=== PATIENT | male | born 1940 | race Caucasian/White ===

== ENCOUNTER 2016-09-15 16:14 | Inpatient (IN) ==
[2016-09-15] MEDS ORDERED: NS 4,000 ML ONE (16:17)
[2016-09-15] MEDS ORDERED: ZOFRAN IV ONE ×2 (16:24→19:14)
[2016-09-15] MEDS ORDERED: NS 1,000 ML IV ONE ×2 (16:24→16:56)
[2016-09-15 16:41] LABS: MANUAL DIFF NEEDED? NO
[2016-09-15 16:44] LABS: BASO% 0.4 % (0.0-0.8); EOS# 0.13 X1000 (0.0-0.7); EOS% 1.3 % (0.0-10.0); HEMATOCRIT 43.3 % (42.0-52.0); HEMOGLOBIN 14.3 g/dL (14.0-18.0); IMM GRAN# 0.14 X1000 (0.0-0.04); IMM GRAN% 1.4 % (0.0-0.5); LYMPH# 2.75 X1000 (1.2-3.4); LYMPH% 27.6 % (20.5-51.1); MCH 29.7 PG (27-31); MCV 89.8 FL (81-99); MONO# 0.58 X1000 (0.11-0.59); MONO% 5.8 % (1.7-9.3); MPV 10.3 FL (7.4-10.4); NEUT% 63.5 % (42.2-75.2); PLT 181 X1000 (130-400); RBC 4.82 XMIL (4.7-6.1)
[2016-09-15 16:52] LABS: INR 0.97; PROTIME 10.2 Seconds (9.2-11.7); PTT 22.2 Seconds (22.0-36.0)
[2016-09-15 17:03] LABS: ALBUMIN 3.8 g/dL (3.5-5.0); CALCIUM 8.6 mg/dL (8.8-10.2); POTASSIUM 4.3 mmol/L (3.5-5.1); TOTAL BILIRUBIN 0.34 mg/dL (0.20-1.00); TOTAL PROTEIN 6.4 g/dL (6.3-8.3)
--- NOTE | 2016-09-15 17:03 | Diag Imaging Result Document ---
PROCEDURE NAME: CHEST-PORTABLE - 09/15/2016 SINGLE FRONTAL RADIOGRAPH OF THE CHEST: COMPARISON: 07/22/2016. FINDINGS: Left chest port is in stable position. The lungs are grossly clear. There is no definite pleural fluid collection. Cardiac silhouette and central vasculature are grossly unremarkable. IMPRESSION: Stable chest with no definite acute pathology.
--- NOTE | 2016-09-15 17:05 | Diag Imaging Result Document ---
PROCEDURE NAME: PELVIS - 09/15/2016 SINGLE FRONTAL RADIOGRAPH OF THE PELVIS: COMPARISON: None available. FINDINGS: There are cortical defects involving the superior pubic ramus on the right, the superior pubic ramus on the left, and the inferior pubic ramus on the left suggesting nondisplaced fractures. No discrete hip fracture is identified. The joint spaces are preserved. There is degenerative arthropathy involving the lower lumbar spine. IMPRESSION: Evidence of nondisplaced fractures at least involving the superior pubic rami bilaterally in the inferior pubic ramus on the left.
--- NOTE | 2016-09-15 17:09 | Diag Imaging Result Document ---
PROCEDURE NAME: KUB ABDOMEN - 09/15/2016 SINGLE FRONTAL RADIOGRAPH OF THE ABDOMEN: COMPARISON: None available. FINDINGS: There are unremarkable bowel gas and stool patterns. There is no obstructive pattern. There is no evidence of large volume free abdominal gas. There are nondisplaced fractures involving pubic rami bilaterally and the left inferior ramus. See pelvic radiograph report for full details. IMPRESSION: Pelvic fractures as described. No definite acute abdominal pathology by plain radiograph. [facility]
[2016-09-15] MEDS ORDERED: DILAUDID IV ONE ×2 (17:19→19:14)
--- NOTE | 2016-09-15 17:25 | Diag Imaging Result Document ---
PROCEDURE NAME: ANGIOGRAM/AORTA W/RUNOFF - 09/15/2016 CTA ABDOMEN AND PELVIS WITH LOWER EXTREMITY RUNOFFS: COMPARISON: Conventional CT abdomen and pelvis dated 07/22/2016. FINDINGS: There is fairly extensive atherosclerotic calcification throughout the abdominal aorta as well as the iliac arteries. 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 The aorta remains patent. There is multifocal moderate narrowing of the common iliac arteries and internal iliac arteries. They remain patent, however. There is mild focal atherosclerotic calcification involving the proximal and distal external iliac artery on the left. It remains patent, however. The right external iliac artery is widely patent throughout its course. There is atherosclerotic calcification at the origins of the celiac trunk and SMA causing mild stenosis. They remain patent. The LÓPEZ appears to be occluded at its origin with reconstitution of blood flow via collateralization. There is atherosclerotic disease at the origins of both renal arteries. There is [id number] stenosis here. They remain patent, however. There is no evidence of acute vascular injury involving the abdomen or pelvis. There are nondisplaced fractures involving the superior pubic rami bilaterally extending to the anterior aspect of the acetabulum on the right as well as the inferior pubic ramus on the left that were also seen on a previous recent radiograph. There are very subtle nondisplaced fractures at the inferior pubic ramus on the right as well as the left sacral ala that could not be identified by plain radiograph. The femurs are intact. There is a perineal hematoma. There is a small amount of blood adjacent to the bladder base , more on the left. This does not appear to be intraperitoneal blood. Otherwise, the abdomen and pelvis are essentially stable as compared to the previous study. There is patchy atherosclerotic calcification involving both common femoral arteries distally with mild stenosis. There is also calcification involving the superficial femoral arteries with bilateral moderate focal stenosis at the distal superficial femoral arteries. There is relatively mild atherosclerotic calcification involving the popliteal arteries. On the right, the anterior and posterior tibial arteries remain patent throughout their courses and provide runoff to the foot. The distal peroneal artery is difficult to identify below the ankle. On the left, the posterior tibial artery is patent throughout its course. The anterior tibial artery is also patent, but is very diminutive. The peroneal artery cannot be identified below the level of the ankle. There is no evidence of acute vascular injury involving either of the lower extremities. IMPRESSION: 1. Acute pelvic fractures as described above, as well as a subtle nondisplaced fracture involving the left sacral ala and associated soft tissue hemorrhage. 2. Aortoiliac atherosclerotic disease and atherosclerotic disease involving the major branches of the aorta as well as the arteries of the lower extremities as described above. However, there is no evidence of acute vascular injury. [facility]
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
--- NOTE | 2016-09-15 19:44 | Diag Imaging Result Document ---
PROCEDURE NAME: PELVIS W/O CONTRAST - 09/15/2016 COMPARISON: CTA abdomen and pelvis with lower extremity run-off dated 2016. FINDINGS: Prior to this study, a retrograde urethrogram was performed and contrast was injected. As was suspected on the retrograde urethrogram, there is contrast extravasation in the region of the membranous urethra indicating urethral injury. The injected contrast is also seen filling the corpus cavernosa bilaterally. There is no evidence of bladder neck injury. As was seen on the recent CT, multiple pelvic fractures are again identified as well as a left sacral ala fracture. There is soft tissue hemorrhage involving the perineum. There is also a small amount of hemorrhage adjacent to the bladder that is stable. There is no intrapelvic contrast extravasation, however. There is no definite bladder neck injury. IMPRESSION: 1. Findings consistent with urethral injury with contrast extravasation from a recent retrograde urethrogram in the region of the membranous urethra. 2. Perineal hematoma that is stable. 3. No evidence of bladder injury. [facility]
--- NOTE | 2016-09-15 19:51 | Diag Imaging Result Document ---
PROCEDURE NAME: URETHROGRAM W S/I - 09/15/2016 RETROGRADE URETHROGRAM: COMPARISON: None available. FINDINGS: The urethral meatus was sterilized with Betadine solution. The tip of a Dumont catheter was then inserted into distal urethra and Cysto-Conray contrast was injected under fluoroscopy. The urinary bladder was full of contrast even before the study from a very recent CT. Upon injection, there was contrast extravasation from the urethra into the soft tissues. This indicates urethral injury. 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 The urinary bladder neck does appear to be intact. IMPRESSION: Disruption of the posterior urethra that appears to extend through the urogenital diaphragm suggesting a Baca type 3 injury.
[2016-09-15] MEDS ORDERED: KEFZOL 2 GM/D5W 2 GM/50 ML IVPB IV ONE (20:00)
[2016-09-15] MEDS ORDERED: FENTANYL ONE (21:27)
[2016-09-15] MEDS ORDERED: DIPRIVAN 1% ONE (21:27)
[2016-09-15] MEDS ORDERED: NS 1,000 ML ONE (21:50)
[2016-09-15] MEDS ORDERED: ZOFRAN IV PRN (22:23)
[2016-09-15] MEDS ORDERED: MICARDIS PO SCH (22:23)
[2016-09-15] MEDS: SODIUM CHLORIDE 0.9% INJ SCH (22:59)
[2016-09-15] MEDS: ATIVAN PO SCH (22:59)
[2016-09-15] MEDS: PROTONIX IV SCH (22:59)
[2016-09-15] MEDS: NS 1,000 ML IV SCH (22:59)
[2016-09-15] MEDS: HUMALOG SUBQ SCH (23:06)
[2016-09-16] MEDS: DILAUDID IV PRN ×7 (00:14→22:34)
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
[2016-09-16] MEDS: TYLENOL PO PRN ×2 (03:48→20:47)
[2016-09-16 03:52] LABS: URINE MICRO REVIEW NEEDED? NO; URINE SOURCE CATH
[2016-09-16 03:57] LABS: UR EPITHELIAL CELLS <10 /HPF (<10); URINE BACTERIA NEGATIVE /HPF; URINE RBC TNTC /HPF (<10)
[2016-09-16 04:02] LABS: BILIRUBIN URINE NEGATIVE (NEGATIVE); BLOOD URINE LARGE (NEGATIVE); COLOR ORANGE; GLUCOSE URINE 300 mg/dL (NEGATIVE); LEUKOCYTES URINE NEGATIVE (NEGATIVE); NITRITE URINE NEGATIVE (NEGATIVE); PH URINE 5.5; PROTEIN URINE 30 mg/dL (NEGATIVE); TURBIDITY URINE HAZY (CLEAR); UROBILINOGEN URINE NORMAL (NORMAL)
[2016-09-16 04:17] LABS: URINE CULTURE NEEDED? YES
[2016-09-16 06:11] LABS: MANUAL DIFF NEEDED? NO
[2016-09-16] MEDS: HUMALOG SUBQ SCH ×4 (06:29→21:00)
[2016-09-16] MEDS: ATIVAN PO SCH ×3 (06:30→22:35)
[2016-09-16 06:42] LABS: BASO% 0.2 % (0.0-0.8); EOS# 0.06 X1000 (0.0-0.7); EOS% 0.7 % (0.0-10.0); HEMATOCRIT 35.7 % (42.0-52.0); HEMOGLOBIN 11.4 g/dL (14.0-18.0); IMM GRAN# 0.05 X1000 (0.0-0.04); IMM GRAN% 0.6 % (0.0-0.5); LYMPH# 1.36 X1000 (1.2-3.4); LYMPH% 15.5 % (20.5-51.1); MCHC 31.9 g/dL (33-37); MCV 90.8 FL (81-99); MONO# 0.65 X1000 (0.11-0.59); MONO% 7.4 % (1.7-9.3); MPV 10.4 FL (7.4-10.4); NEUT% 75.6 % (42.2-75.2); PLT 138 X1000 (130-400); RBC 3.93 XMIL (4.7-6.1)
[2016-09-16 06:50] LABS: AGAP 10; BUN 12 mg/dL (8-22); CALCIUM 7.6 mg/dL (8.8-10.2); CHLORIDE 106 mmol/L (98-107); COSMO 277; POTASSIUM 4.9 mmol/L (3.5-5.1); SODIUM 137 mmol/L (136-145); TCO2 21 mmol/L (25-35)
[2016-09-16] MEDS: ZOSYN 3.375 GM/NS 3.375 GM/50 ML IVPB IV SCH ×4 (07:05→23:57)
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
[2016-09-16] MEDS: PULMICORT FLEXHALER INH SCH ×2 (07:36→20:12)
[2016-09-16] MEDS: NS 1,000 ML IV SCH ×2 (08:42→18:35)
[2016-09-16] MEDS ORDERED: LYRICA PO SCH (09:00)
[2016-09-16] MEDS ORDERED: ZOFRAN ONE (09:08)
[2016-09-16] MEDS ORDERED: ROBINUL ONE (09:08)
[2016-09-16] MEDS ORDERED: EXTENSION SET 32 IN 4522 ONE (09:08)
[2016-09-16] MEDS ORDERED: SODIUM CHLORIDE 0.9% 20 ML ONE (09:08)
[2016-09-16] MEDS ORDERED: NEO-SYNEPHRINE ONE (09:08)
[2016-09-16] MEDS ORDERED: LR 1,000 ML ONE (09:08)
[2016-09-16] MEDS ORDERED: QUELICIN (DOSE) ONE (09:08)
[2016-09-16] MEDS ORDERED: ANESTHESIA PB SET 88 IN 5742 ONE (09:08)
[2016-09-16] MEDS ORDERED: XYLOCAINE-MPF 2% ONE (09:08)
[2016-09-16] MEDS: MICARDIS PO SCH (09:57)
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
[2016-09-16] MEDS: FLONASE NAS SCH (18:34)
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
[2016-09-16] MEDS: HYDROCHLOROTHIAZIDE PO SCH (20:46)
[2016-09-16] MEDS: LYRICA PO SCH (20:46)
[2016-09-16] MEDS: PROTONIX IV SCH (22:35)
[2016-09-17] MEDS: DILAUDID IV PRN ×6 (01:34→22:20)
[2016-09-17] MEDS: NS 1,000 ML IV SCH ×2 (03:55→16:44)
[2016-09-17 04:44] LABS: MANUAL DIFF NEEDED? NO
[2016-09-17 04:49] LABS: BASO% 0.3 % (0.0-0.8); EOS# 0.17 X1000 (0.0-0.7); EOS% 2.3 % (0.0-10.0); HEMATOCRIT 30.8 % (42.0-52.0); HEMOGLOBIN 10.1 g/dL (14.0-18.0); IMM GRAN# 0.06 X1000 (0.0-0.04); IMM GRAN% 0.8 % (0.0-0.5); LYMPH# 1.03 X1000 (1.2-3.4); MCH 29.9 PG (27-31); MCHC 32.8 g/dL (33-37); MCV 91.1 FL (81-99); MONO# 0.59 X1000 (0.11-0.59); NEUT% 74.6 % (42.2-75.2); PLT 112 X1000 (130-400); RBC 3.38 XMIL (4.7-6.1)
[2016-09-17 05:05] LABS: AGAP 9; BUN 10 mg/dL (8-22); CHLORIDE 101 mmol/L (98-107); COSMO 270; POTASSIUM 4.2 mmol/L (3.5-5.1); SODIUM 135 mmol/L (136-145); TCO2 25 mmol/L (25-35)
[2016-09-17] MEDS: ZOSYN 3.375 GM/NS 3.375 GM/50 ML IVPB IV SCH ×4 (06:28→23:51)
[2016-09-17] MEDS: ATIVAN PO SCH (06:28)
[2016-09-17] MEDS: HUMALOG SUBQ SCH ×4 (06:39→21:55)
[2016-09-17] MEDS ORDERED: ATIVAN PO ONE (06:45)
[2016-09-17] MEDS: MICARDIS PO SCH (08:01)
[2016-09-17] MEDS: FLONASE NAS SCH (08:01)
[2016-09-17] MEDS: PULMICORT FLEXHALER INH SCH ×2 (08:11→19:43)
[2016-09-17] MEDS ORDERED: PERICOLACE PO ONE (08:29)
[2016-09-17] MEDS ORDERED: PERICOLACE PO SCH (09:00)
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
[2016-09-17] MEDS: MIRALAX PO SCH ×2 (10:32→21:55)
[2016-09-17] MEDS ORDERED: ATIVAN PO SCH (14:30)
[2016-09-17] MEDS: ATIVAN PO PRN (15:53)
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
[2016-09-17] MEDS: LYRICA PO SCH (21:55)
[2016-09-17] MEDS: PERICOLACE PO SCH (21:55)
[2016-09-17] MEDS: HYDROCHLOROTHIAZIDE PO SCH (21:55)
[2016-09-17] MEDS: TYLENOL PO PRN (22:24)
[2016-09-17] MEDS: PROTONIX IV SCH (22:31)
[2016-09-18] MEDS: DILAUDID IV PRN ×7 (01:42→23:33)
[2016-09-18] MEDS: NS 1,000 ML IV SCH ×5 (01:42→23:32)
[2016-09-18] MEDS: ZOSYN 3.375 GM/NS 3.375 GM/50 ML IVPB IV SCH ×4 (06:19→23:32)
[2016-09-18] MEDS: ATIVAN PO PRN ×2 (06:19→18:04)
[2016-09-18] MEDS: HUMALOG SUBQ SCH ×4 (06:38→22:53)
[2016-09-18 07:34] LABS: MANUAL DIFF NEEDED? NO
[2016-09-18 07:36] LABS: BASO% 0.5 % (0.0-0.8); EOS# 0.19 X1000 (0.0-0.7); HEMATOCRIT 29.4 % (42.0-52.0); HEMOGLOBIN 9.7 g/dL (14.0-18.0); IMM GRAN# 0.03 X1000 (0.0-0.04); IMM GRAN% 0.5 % (0.0-0.5); LYMPH# 1.12 X1000 (1.2-3.4); LYMPH% 17.6 % (20.5-51.1); MCH 29.7 PG (27-31); MCV 89.9 FL (81-99); MONO# 0.57 X1000 (0.11-0.59); MONO% 8.9 % (1.7-9.3); MPV 10.1 FL (7.4-10.4); NEUT% 69.5 % (42.2-75.2); PLT 116 X1000 (130-400); RBC 3.27 XMIL (4.7-6.1)
[2016-09-18 08:02] LABS: AGAP 11; BUN 13 mg/dL (8-22); CALCIUM 8.5 mg/dL (8.8-10.2); CHLORIDE 98 mmol/L (98-107); COSMO 270; POTASSIUM 4.1 mmol/L (3.5-5.1); SODIUM 134 mmol/L (136-145); TCO2 25 mmol/L (25-35)
[2016-09-18] MEDS: MIRALAX PO SCH ×2 (09:34→20:29)
[2016-09-18] MEDS: MICARDIS PO SCH (09:34)
[2016-09-18] MEDS: PERICOLACE PO SCH ×2 (09:34→20:27)
[2016-09-18] MEDS: FLONASE NAS SCH (09:35)
[2016-09-18] MEDS ORDERED: MILK OF MAGNESIA PO ONE (09:41)
[2016-09-18] MEDS ORDERED: DULCOLAX PR PRN (09:42)
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
[2016-09-18] MEDS: PULMICORT FLEXHALER INH SCH (18:55)
[2016-09-18] MEDS: SODIUM CHLORIDE 0.9% INJ SCH (20:26)
[2016-09-18] MEDS: PROTONIX IV SCH (20:26)
[2016-09-18] MEDS: LYRICA PO SCH (20:27)
[2016-09-18] MEDS: LACTULOSE PO SCH (20:28)
[2016-09-18] MEDS: HYDROCHLOROTHIAZIDE PO SCH (20:28)
[2016-09-19] MEDS: DILAUDID IV PRN ×7 (02:42→23:21)
[2016-09-19] MEDS: ZOSYN 3.375 GM/NS 3.375 GM/50 ML IVPB IV SCH ×4 (02:43→19:17)
[2016-09-19] MEDS: ATIVAN PO PRN ×3 (04:49→20:22)
[2016-09-19 06:09] LABS: MANUAL DIFF NEEDED? NO
[2016-09-19 06:16] LABS: BASO% 0.4 % (0.0-0.8); EOS# 0.17 X1000 (0.0-0.7); EOS% 3.2 % (0.0-10.0); HEMOGLOBIN 7.7 g/dL (14.0-18.0); IMM GRAN# 0.03 X1000 (0.0-0.04); IMM GRAN% 0.6 % (0.0-0.5); LYMPH# 0.93 X1000 (1.2-3.4); LYMPH% 17.4 % (20.5-51.1); MCH 28.9 PG (27-31); MCHC 32.1 g/dL (33-37); MCV 90.2 FL (81-99); MONO# 0.46 X1000 (0.11-0.59); MONO% 8.6 % (1.7-9.3); MPV 10.3 FL (7.4-10.4); NEUT% 69.8 % (42.2-75.2); PLT 125 X1000 (130-400); RBC 2.66 XMIL (4.7-6.1)
[2016-09-19 06:36] LABS: AGAP 9; BUN 12 mg/dL (8-22); CALCIUM 7.2 mg/dL (8.8-10.2); CHLORIDE 104 mmol/L (98-107); COSMO 272; POTASSIUM 3.5 mmol/L (3.5-5.1); SODIUM 136 mmol/L (136-145); TCO2 23 mmol/L (25-35)
[2016-09-19] MEDS: HUMALOG SUBQ SCH ×4 (06:56→21:00)
[2016-09-19] MEDS: PULMICORT FLEXHALER INH SCH ×2 (07:58→19:30)
[2016-09-19] MEDS: FLONASE NAS SCH (09:46)
[2016-09-19] MEDS: LACTULOSE PO SCH ×2 (09:46→20:23)
[2016-09-19] MEDS: MICARDIS PO SCH ×2 (09:46→09:52)
[2016-09-19] MEDS: PERICOLACE PO SCH ×2 (09:46→20:22)
[2016-09-19] MEDS: MIRALAX PO SCH ×2 (09:47→20:26)
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
[2016-09-19] MEDS: NS 1,000 ML IV SCH ×2 (12:07→19:17)
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
[2016-09-19] MEDS: HYDROCHLOROTHIAZIDE PO SCH (20:21)
[2016-09-19] MEDS: PROTONIX IV SCH (20:22)
[2016-09-19] MEDS: SODIUM CHLORIDE 0.9% INJ SCH (20:22)
[2016-09-19] MEDS: LYRICA PO SCH (20:22)
[2016-09-20] MEDS: ZOSYN 3.375 GM/NS 3.375 GM/50 ML IVPB IV SCH ×2 (00:04→06:27)
[2016-09-20] MEDS: PULMICORT FLEXHALER INH SCH ×2 (02:23→07:52)
[2016-09-20] MEDS: DILAUDID IV PRN ×4 (02:23→11:31)
[2016-09-20] MEDS: FLONASE NAS SCH ×2 (02:24→09:05)
[2016-09-20] MEDS: NS 1,000 ML IV SCH (05:13)
[2016-09-20 06:05] LABS: MANUAL DIFF NEEDED? NO
[2016-09-20 06:11] LABS: BASO% 0.5 % (0.0-0.8); EOS% 3.4 % (0.0-10.0); HEMATOCRIT 27.4 % (42.0-52.0); IMM GRAN# 0.03 X1000 (0.0-0.04); IMM GRAN% 0.5 % (0.0-0.5); LYMPH# 1.05 X1000 (1.2-3.4); MCH 29.6 PG (27-31); MCHC 32.8 g/dL (33-37); MCV 90.1 FL (81-99); MONO# 0.56 X1000 (0.11-0.59); MONO% 9.6 % (1.7-9.3); MPV 9.3 FL (7.4-10.4); PLT 191 X1000 (130-400); RBC 3.04 XMIL (4.7-6.1)
[2016-09-20] MEDS: HUMALOG SUBQ SCH ×2 (06:28→10:52)
[2016-09-20 06:47] LABS: AGAP 15; BUN 14 mg/dL (8-22); CALCIUM 8.3 mg/dL (8.8-10.2); CHLORIDE 97 mmol/L (98-107); COSMO 276; POTASSIUM 3.9 mmol/L (3.5-5.1); SODIUM 137 mmol/L (136-145); TCO2 25 mmol/L (25-35)
[2016-09-20] MEDS: ATIVAN PO PRN (07:36)
[2016-09-20] MEDS: PERICOLACE PO SCH (09:04)
[2016-09-20] MEDS: LACTULOSE PO SCH (09:04)
[2016-09-20] MEDS: MICARDIS PO SCH (09:04)
[2016-09-20] MEDS: MIRALAX PO SCH (09:04)
[2016-09-20] MEDS ORDERED: FLEET MINERAL OIL ENEMA PR ONE (09:15)
[2016-09-20] MEDS ORDERED: DULCOLAX PR SCH (09:15)
[2016-09-20 12:05] VITALS: BP 135/57
[2016-09-20] MEDS ORDERED: HEPARIN ONE (12:34)
--- NOTE | 2016-09-20 15:54 | Diag Imaging Result Document ---
PROCEDURE NAME: ABDOMEN FLAT/UPRIGHT - 09/20/2016 PORTABLE SUPINE AND UPRIGHT ABDOMEN: COMPARISON: 09/15/2016. FINDINGS: There is gas visible in mostly nondistended small bowel and colon. There is a moderate amount of retained fecal debris in the colon. There is no free air identified. There is an apparent Dumont catheter is at the expected location of the urinary bladder. There are fractures of the right superior pubic ramus, left superior pubic ramus, and left inferior pubic ramus again seen. There is increased displacement of the left pubic ramus fractures compared to previous exam. IMPRESSION: 1. Possible constipation. Nonspecific bowel gas pattern otherwise. 2. Increased displacement of left pubic ramus fractures compared to 09/15/2016.
--- NOTE | 2016-09-23 05:27 | DISCHARGE SUMMARY ---
ADMISSION DATE: 09/15/2016 DISCHARGE DATE: 09/20/2016 CONTINUATION REPORT DISCHARGE MEDICATIONS: 1. Tylenol 650 mg p.o. every 6 hours p.r.n. for pain. 2. Lactulose 30 mg p.o. twice a day. 3. Anahi-Colace 1 tab oral twice a day. 4. MiraLAX 17 g p.o. twice a day. 5. Dulcolax 10 mg per rectum daily. 6. Percocet 10/325, 1 tab oral every 4 hours p.r.n. for pain. 7. Ativan 1 mg p.o. 3 times a day p.r.n. for anxiety. 8. Micardis 1 tab oral daily. 9. Janumet 1 tab oral twice daily. 10. Flovent 50 mcg inhaled twice a day p.r.n. 11. Pravachol 40 mg p.o. at bedtime. 12. Lyrica 50 mg p.o. at bedtime. 13. Pulmicort 180 mcg inhaled twice a day. 14. Reglan 5 mg p.o. daily. 15. Omeprazole 40 mg p.o. daily. 16. Lantus 30 units subcutaneous daily. DISCHARGE DIET: 1800 ADA diet. ACTIVITY: As tolerated. FOLLOWUP INSTRUCTIONS: 1. The patient will need to follow up with Dr. Vaca in 2 weeks. 2. The patient will need to follow up with Dr. Telles in 2 weeks. DISPOSITION: The patient has agreed to be discharged to [facility]. cc: Rosalia Garcia MD
== END 2016-09-20 14:57 | disposition swing bed (61) ==
LOC: ED 16:14 → 4N 18:16 → ED 20:03 → ICU 22:20 → SUATTDRO 22:20 → 4N 09-18 00:49
PROVIDERS: ATTEND Internal Medicine